=== PATIENT | female | born 1995 | race Caucasian/White ===

== ENCOUNTER → 2024-09-15 15:00 | Outpatient (CLI) | payer OTHER, SELFPAY | PROVIDERS: PCP Family Medicine; Visit Provider Family Medicine | DX: B37.9 Candidiasis, unspecified (principal) | CPT/HCPCS: 87210 ==

== ENCOUNTER → 2024-12-27 11:20 | Outpatient (CLI) | payer OTHER, SELFPAY | PROVIDERS: PCP Family Medicine; Visit Provider Family Medicine | DX: B37.31 Acute candidiasis of vulva and vagina (principal) | CPT/HCPCS: 87210; 87220 ==

== ENCOUNTER → 2025-01-05 15:21 | Outpatient (CLI) | payer OTHER, SELFPAY ==
[2025-01-05 16:25] LABS: Add Manual Diff / Slide Review NO; Basophils Absolute Auto 0 /uL (0-100); Basophils Percent Auto 0.3 % (0-2); Eosinophils Absolute Auto 100 /uL (0-450); Eosinophils Percent Auto 2.6 % (2-4); Hemoglobin 12.6 g/dL (12.0-16.0); Lymphocytes Absolute Auto 1500 /uL (1100-4500); Lymphocytes Percent Auto 31.1 % (25-40); Mean Corpuscular HGB Conc 34.1 % (30-36); Mean Corpuscular Hemoglobin 30.6 PG (26-34); Mean Corpuscular Volume 89.6 fL (80-100); Monocytes Absolute Auto 500 /uL (0-900); Monocytes Percent Auto 10.8 % (3-14); Neutrophils Absolute Auto 2700 /uL (1500-7000); Neutrophils Percent Auto 55.2 % (50-75); Platelet Count 260 X10^3/uL (150-400); Red Blood Cell Count 4.13 X10^6/uL (4.0-5.2); Red Cell Distribution Width 12.6 % (11.6-14.8); White Blood Cell Count 4.9 X10^3/uL (4.5-11.0)
[2025-01-05 16:41] LABS: Hemoglobin A1C% w Est Avg Glu 4.9 % (4.0-6.0)
[2025-01-05 16:44] LABS: Alanine Aminotransferase 14 IU/L (<35); Albumin 4.7 g/dL (3.5-5.0); Albumin Globulin Ratio 1.6 (1.0-2.8); Alkaline Phosphatase 56 U/L (38-126); Aspartate Aminotransferase 25 IU/L (14-36); BUN Creatinine Ratio 20.3 (6-22); Bilirubin Total 0.4 mg/dL (0.2-1.3); Blood Urea Nitrogen 13 mg/dL (7-17); Calcium 9.1 mg/dL (8.4-10.2); Carbon Dioxide 24 mmol/L (22-32); Chloride 103 mmol/L (98-107); Estimated Glomerular Filt Rate > 60 mL/min (>60); Glucose 96 mg/dL (70-99); HEMOLYSIS < 15 (0-50); Potassium 4.2 mmol/L (3.4-5.1); Sodium 137 mmol/L (137-145); Total Protein 7.7 g/dL (6.3-8.2)
[2025-01-05 17:00] LABS: Follicle Stimulating Hormone < 0.66 mIU/mL; Free T4, Direct Thyroxine 0.94 ng/dL (0.78-2.19); Luteinizing Hormone 0.243 mIU/mL
[2025-01-05 17:14] LABS: Thyroid Stimulating Hormone 1.78 uIU/mL (0.47-4.68)
[2025-01-07 05:13] LABS: Sex Hormone Binding Globulin 75.8 nmol/L (24.6-122.0)
[2025-01-13 09:09] LABS: Testosterone % Fr + Wkly bound 15.5 % (3.0-18.0); Testosterone Fr+Wkly bound 6.1 ng/dL (0.0-9.5); Testosterone, Total 39.2 ng/dL (10.0-55.0)
[2025-02-02 19:26] LABS: Urine N gonorrhoeae NOT DETECTED
[2025-02-02 19:28] LABS: Urine Chlamydia NOT DETECTED
== END ==
PROVIDERS: PCP Family Medicine; Referring Provider Obstetrics & Gynecology; Visit Provider Obstetrics & Gynecology
DX: B37.31 Acute candidiasis of vulva and vagina (principal); N93.9 Abnormal uterine and vaginal bleeding, unspecified
CPT/HCPCS: 36415; 80053; 82627; 83001; 83002; 83036; 83498; 84146; 84270; 84403; 84439; 84443; 85025; 87086; 87491; 87563; 87591; 87798

== ENCOUNTER → 2025-02-16 09:30 | Outpatient (CLI) | payer OTHER, SELFPAY ==
[2025-02-16 10:23] LABS: Add Manual Diff / Slide Review NO; Hematocrit 35.1 % (36-46); Hemoglobin 12.1 g/dL (12.0-16.0); Lymphocytes Absolute Auto 1700 /uL (1100-4500); Mean Corpuscular HGB Conc 34.5 % (30-36); Mean Corpuscular Hemoglobin 30.9 PG (26-34); Mean Corpuscular Volume 89.7 fL (80-100); Platelet Count 299 X10^3/uL (150-400)
[2025-02-16 10:48] LABS: Natera Collection Specimen Collected
[2025-02-16 11:11] LABS: Hepatitis B Surface Antigen NEGATIVE s/c (NEGATIVE)
[2025-02-16 11:18] LABS: HCG Quantitative /Beta subunit 130630 mIU/mL
[2025-02-16 11:30] LABS: HIV 1 & 2 Ab/Ag 4th Gen Combo NEGATIVE (NEGATIVE); Hep C Virus Ab w/Reflex Quant NEGATIVE s/c (NEGATIVE)
== END ==
LOC: LAB 09:31
PROVIDERS: PCP Family Medicine; Referring Provider Obstetrics & Gynecology; Visit Provider Obstetrics & Gynecology
DX: Z34.02 Encounter for supervision of normal first pregnancy, second trimester (principal); Z36.0 Encounter for antenatal screening for chromosomal anomalies
CPT/HCPCS: 36415; 80055; 84702; 86787; 86803; 86850; 86900; 86901; 87389

== ENCOUNTER → 2025-03-02 11:07 | Outpatient (CLI) | payer OTHER, SELFPAY ==
[2025-03-03 14:36] LABS: Trichomoas vaginalis Negative (Negative)
== END ==
PROVIDERS: PCP Family Medicine; Visit Provider Student in an Organized Health Care Education/Training Program
DX: N89.8 Other specified noninflammatory disorders of vagina (principal)
CPT/HCPCS: 87480; 87510; 87660

== ENCOUNTER → 2025-05-03 13:44 | Outpatient (CLI) | payer OTHER, SELFPAY ==
--- NOTE | 2025-05-03 13:45 | DI.US.S_ITS ---
PROCEDURE: US OB >= 14 WEEKS FETUS INDICATIONS: 20 week anatomy scan OUTSIDE/PRIOR DATING DATA: Working (BREEZY): 09/10/25. TECHNIQUE: Real-time scanning was performed of the fetus, with image documentation and biometric measurements. COMPARISON: [facility], US, US OB <= 14 WEEKS FETUS, 03/02/2025, 11:08. FINDINGS: General: A single living intrauterine gestation is present. Presentation: Vertex Placenta: Placental position is posterior , without previa. Amniotic fluid index: 14 point cm, normal range is 5-24 cm. Single deepest vertical pocket is 4.5 cm. heart rate: 140 beats per minute. Maternal cervical canal: 3 cm long. Normal lower limit is 2.5 cm. biometrics: Biparietal diameter: 5.2 cm 21 weeks 5 days Head circumference: 19.8 cm 21 weeks 5 days Abdominal circumference: 16.8 cm 21 weeks 5 days Femur length: 3.3 cm 20 weeks 3 days Clinically estimated gestational age: 21 weeks 2 days Composite gestational age from present scan: 21 weeks 3 days Estimated weight and percentile: 410 g 42nd percentile Anatomic survey: Neuro: Ventricles are non-dilated at less than 10 mm. Cisterna magna is normal at 3-11 mm. Cerebellum is normal in size and morphology. Nuchal skin fold: Normal at less than 6 mm between 14-21 weeks gestational age. Face: Nose and lips, facial profile are normal. Spine: No evidence for spina bifida. Heart: 4-chambered heart and ventricular outflow tracts are not well seen. Diaphragm: Diaphragm is intact. Stomach: Left-sided stomach is present. Kidneys: No hydronephrosis. Normal is less than 5 mm in 2nd trimester, less than 7 mm in 3rd trimester. Cord: 3-vessel cord has orthotopic insertion. Bladder: Normal in size. Extremities: All 4 extremities identified. IMPRESSION: Single live intrauterine with gestational age today of 21 weeks 3 days. 4 chambered heart and outflow tracts are suboptimally visualized. Recommend follow-up imaging for further evaluation. We strive to produce accurate, complete, and clear reports of imaging services. To assist us in improving patient care, this report was composed using standard report templates and voice recognition software. Therefore, it may contain abnormal punctuation, insertions and/or omissions. Occasional wrong-word or sound-alike substitutions may occur. Though we review the report and make efforts to correct it, we do recommend that the report be read carefully in proper context to recognize any text inaccuracies. Dictated by: Michaela Craig M.D. on 05/04/2025 at 15:01 Approved by: Michaela Craig M.D. on 05/04/2025 at 15:06
== END ==
LOC: US 13:44
PROVIDERS: PCP Family Medicine; Referring Provider Obstetrics & Gynecology; Visit Provider Obstetrics & Gynecology
DX: Z34.02 Encounter for supervision of normal first pregnancy, second trimester (principal); Z3A.21 21 weeks gestation of pregnancy
CPT/HCPCS: 76811

== ENCOUNTER → 2025-05-25 10:56 | Outpatient (CLI) | payer OTHER, SELFPAY ==
--- NOTE | 2025-05-25 10:59 | EKG_ITS ---
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
== END ==
LOC: RESP 10:58
PROVIDERS: PCP Family Medicine; Referring Provider Obstetrics & Gynecology; Visit Provider Obstetrics & Gynecology
DX: R00.2 Palpitations (principal)
CPT/HCPCS: 93005

== ENCOUNTER → 2025-05-26 10:18 | Outpatient (CLI) | payer OTHER, SELFPAY ==
[2025-05-26 11:15] LABS: Hematocrit 29.0 % (36-46); Hemoglobin 10.1 g/dL (12.0-16.0)
[2025-05-26 12:33] LABS: GTT (PREG) 1 Hour PP 50gm Dose 85 mg/dL (76-139)
== END ==
PROVIDERS: PCP Family Medicine; Referring Provider Obstetrics & Gynecology; Visit Provider Obstetrics & Gynecology
DX: Z34.02 Encounter for supervision of normal first pregnancy, second trimester (principal)
CPT/HCPCS: 36415; 82950; 85014; 85018; 86850

== ENCOUNTER → 2025-06-12 14:57 | Outpatient (CLI) | payer OTHER, SELFPAY ==
--- NOTE | 2025-06-12 14:57 | DI.ECHO.S_ITS ---
[facility] : : [address] : [place] : : [id number] : : Phone: [phone] Echocardiogram Report + + :Name: MERISSA SIMS Study Date: 06/12/2025 Height: 63 in : :[facility] ReadingLocation: Weight: 115 lb : : Gender: Female BSA: 1.5 m2 : :: 1995 Age: 29 yrs BP: 103/71 mmHg: :Reason For Study: PALPITATIONS, : :Ordering Physician: ROSALES, : :RENETTA Gutierrez Performed By: Tylor Rubin : :Referring: RENETTA CABA : + + Interpretation Summary The ejection fraction is estimated to be 55-60%. Mitral valves are minimally thickened and mildly reduced excursion. This can sometimes be seen in patients with history of rheumatic heart disease. It might be worthwhile exploring this with the patient. There does not appear to be any significant mitral stenosis. There is trace tricuspid regurgitation. Procedure: A two-dimensional transthoracic echocardiogram with color flow and Doppler was performed. The study quality was technically good. There is no prior echocardiogram noted for this patient. The patient was in normal sinus rhythm during the exam. Left Ventricle: The left ventricle is normal in size. There is normal left ventricular wall thickness. There is no ventricular septal defect visualized. The ejection fraction is estimated to be 55-60%. There are no focal wall motion abnormalities. Normal diastolic function. Right Ventricle: The right ventricle is normal in size and function. Atria: The left atrial size is normal. Right atrial size is normal. There is no Doppler evidence for an interatrial shunt. Mitral Valve: Mitral valves are minimally thickened and mildly reduced excursion. This can sometimes be seen in patients with history of rheumatic heart disease. It might be worthwhile exploring this with the patient. There does not appear to be any significant mitral stenosis. There is no mitral regurgitation noted. Aortic Valve: The aortic valve is trileaflet. The aortic valve opens well. No aortic regurgitation is present. Tricuspid Valve: The tricuspid valve leaflets are thin and pliable. There is trace tricuspid regurgitation. Pulmonic Valve: The pulmonic valve leaflets are thin and pliable; valve motion is normal. There is trace pulmonic regurgitation. Great Vessels: The aortic root is normal size. The dimensions of the ascending aorta are normal. The pulmonary artery is normal size. The IVC is of normal diameter and collapses greater than 50% with a sniff. This suggests a low right atrial pressure of 3 mm Hg. Pericardium/ Pleura There is no pericardial effusion. There is no pleural effusion. MMode/2D Measurements & Calculations LVIDd: 4.8 cm LVOT diam: 1.8 cm LVIDs: 3.3 cm Ao root diam: 2.8 cm FS: 30.5 % asc Aorta Diam: 2.8 cm EPSS: 0.68 cm Ao Arch Diam (Prox Trans): 1.1 cm IVSd: 0.54 cm LVPWd: 0.75 cm LV guadarrama. diameter/BSA (cm/m^2): 3.1 LV sys. diameter/BSA (cm/m^2): 2.2 LA A2 area: 12.9 cm2 RA long axis: 3.6 cm LA A4 area: 11.8 cm2 RA area: 8.0 cm2 LA length (vol): 4.0 cm RA vol: 15.2 ml LA vol: 32.3 ml RA : 10.0 ml/m2 LA vol index: 21.1 ml/m2 IVC diam: 0.98 cm RVD1 (basal): 2.8 cm RVD2 (mid): 2.1 cm TAPSE: 2.1 cm Doppler Measurements & Calculations Ao V2 max: 106.1 cm/sec LVOT Max Jereime: 96.9 cm/sec Ao V2 mean: 67.9 cm/sec LV V1 max P.8 mmHg Ao max P.5 mmHg LV V1 VTI: 16.0 cm Ao mean P.1 mmHg ADAMS(I,D): 2.6 cm2 Ao V2 VTI: 15.8 cm ADAMS(V,D): 2.3 cm2 sev ratio: 1.0 ADAMS indexed to BSA (cm^2/m^2): 1.7 MV E max jeremie: 57.6 cm/sec PA V2 max: 114.3 cm/sec MV A max jeremie: 38.2 cm/sec PA V2 mean: 81.7 cm/sec MV E/A: 1.5 PA mean P.9 mmHg Med Peak E' Jeremie: 8.0 cm/sec PA pr(Accel): 25.9 mmHg E/E' med: 7.2 Lat Peak E' Jeremie: 13.1 cm/sec E/E' lat: 4.4 E/e' average: 5.8 MV dec time: 0.20 sec SV(LVOT): 40.8 ml Reading Physician:11:56 AM
== END ==
LOC: ECHO 14:57
PROVIDERS: PCP Family Medicine; Referring Provider Obstetrics & Gynecology; Visit Provider Obstetrics & Gynecology
DX: R00.2 Palpitations (principal)
CPT/HCPCS: 93306

== ENCOUNTER 2025-06-22 09:37 | Emergency (ER) | payer OTHER, SELFPAY ==
[2025-06-22 09:54] VITALS: BP 101/60; PULSE 90; RESP 18; TEMP 36.9; O2SAT 99; BMI 20.7
--- NOTE | 2025-06-22 09:59 | EKG_ITS ---
[place] [id number] [place] [address] Test Date: 2025-06-22 Pat Name: Lanette Schneider Department: Room: Gender: Female Cable Operator: GILES : 1995 Requested By: Order Number: [id number] Reading MD: Preet Silver MD Measurements Intervals Gail Rate: 91 P: 79 NH: 124 QRS: 78 QRSD: 80 T: 14 QT: 322 QTc: 396 Interpretive Statements Normal sinus rhythm Nonspecific ST and T wave abnormality Electronically Signed On 06-22-2025 11:49:43 PST by Preet Silver MD
--- NOTE | 2025-06-22 10:00 | ED.ARRPALP ---
HPI - Arrhythmia/Palpitations General Chief Complaint: Arrhythmia/Palpitations Stated Complaint: Heart palpatations; SOB worseing Time Seen by Provider: 06/22/25 09:59 Source: patient Mode of arrival: Ambulatory History of Present Illness HPI narrative: patient is sent here by her OBGYN Dr Weldon for palpitations shortness of breath. Patient is . Patient at 28 weeks . Denies abdominal pain pelvic pain vaginal bleeding or discharge. Patient just had OBGYN office visit 2 days ago. Patient has known history of iron deficiency anemia. Has been recommended to have iron transfusion but due to late insurance authorization, could not get it done. No prior history of transfusions. Patient does have history of asthma. Last H&H was 10 and 29 on May 26, 2025. patient has had daily palpitations for the past 4 weeks. They usually last 1 hour at a time. Related Data Home Medications ?Medication ?Instructions ?Recorded ?Confirmed tretinoin 0.025 % topical cream 1 applic topical 2XW PRN Acne 09/04/24 06/19/25 vitamin-ferrous sulfate tab PO 01/17/25 06/19/25 27 mg iron-folic acid 0.8 mg tablet Previous Rx's ?Medication ?Instructions ?Recorded fluticasone propionate 44 1 inh inhalation BID Asthma #10.6 09/04/24 mcg/actuation HFA aerosol inhaler grams lactic acid 1.8 %-citric ac 1 1 appful vaginal PER PKG DIR #60 09/15/24 %-potassium bitartate 0.4 % grams vaginal gel (Phexxi) sumatriptan succinate 50 mg tablet See Rx Instructions PO .COMPLEX 12/19/24 #12 tabs albuterol sulfate 90 mcg/actuation 2 puff inhalation Q6H PRN 02/02/25 aerosol inhaler shortness of breath or wheezing #6.7 grams doxylamine 10 mg-pyridoxine (vit 1 tab PO DAILY #30 tabs 02/02/25 B6) 10 mg tablet,delayed release (Diclegis) promethazine 12.5 mg tablet 12.5 mg PO TID #30 tabs 02/02/25 Allergies Allergy/AdvReac Type Severity Reaction Status Date / Time house dust mite Allergy Severe Difficulty Verified 06/19/25 11:18 Breathing Review of Systems Review of Systems Narrative: GENERAL: Negative chills, fatigue, malaise, fever, sweats. HEENT: Negative sinus pain, ear pain, sore throat RESPIRATORY: Positivedyspnea, negativecough CARDIOVASCULAR: positivechest pain, palpitations GASTROINTESTINAL: Negative vomiting, nausea, abdominal pain : Negative dysuria, frequency, hematuria MUSCULOSKELETAL: Negative muscle or bony pain SKIN: Negative rash, skin lesions NEUROLOGIC: Negative weakness, numbness ROS Unobtainable: All systems reviewed & are unremarkable except as noted in HPI and below Patient History Medical History (Updated 06/22/25 @ 12:35 by Earl Souza MD) Shingles Genital warts (~2013) Surgical History (Updated 12/19/24 @ 07:49 by Jeanne Canales MA) [place] teeth removed Family History (Updated 01/17/25 @ 13:41 by Valeri Evans RN) Father Age: 65 Hypercholesterolemia Hypertension Uncle Diabetes mellitus Heart attack Hypertension Stroke Mother Osteoporosis Grandfather Stroke Grandmother Dementia Grandfather Heart attack Grandmother Recurrent pneumonia Social History marital status: number of children: 0 household members: spouse lives independently: Yes caregiver/support person: No housing: house pets and animals: Yes (cats, aware of litter box precautions) education level: other (medical doctorate) 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[employer]) current occupational exposures/hazards: No special azar needs: No travel history: recent (domestic only) seatbelt use: always helmet use: Yes water heater temp set < 120 deg: Yes working smoke detector in home: Yes fire extinguisher in home: Yes carbon monox detector in home: Yes firearms in home: Yes firearms unloaded and locked: Yes do you feel safe at home: Yes Smoking Status: Never smoker Tobacco: How many years used: 5 (off and on) Smokeless tobacco user: snus second hand exposure: No alcohol intake: former (rarely when not ) substance use type: does not use during the past year weight has: remained stable well-balanced diet: daily or most days daily servings fruits/ve or more times/day caffeine: Yes (aware of 200mg limit) Type(s) of exercise: walking and bicycling additional social history: 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 Pt laughingly wonders why neither she or her was ever taught more about OB care in their training. Smoking Status: Never smoker Exam Narrative Exam Narrative: GENERAL: in no distress, not toxic not dyspneic HEAD: Normocephalic. EYES: Pupils equal round ENT: Mucous membranes moist. NECK: Trachea midline. CARDIOVASCULAR: Regular rate and rhythm RESPIRATORY: Clear to auscultation. Breath sounds equal bilaterally. No wheezes, rales, or rhonchi. GASTROINTESTINAL: Abdomen soft, non-tender /Gravid abdomen. BACK: No flank tenderness. EXTREMITIES: No gross deformities. NEURO: AOx4. Clear speech SKIN: Warm and dry PSYCH: Not anxious, is cooperative Initial Vital Signs Initial Vital Signs: Vital Signs Temperature 98.4 F 06/22/25 09:54 Pulse Rate 90 06/22/25 09:54 Respiratory Rate 18 06/22/25 09:54 Blood Pressure 101/60 06/22/25 09:54 Pulse Oximetry 99 06/22/25 09:54 Oxygen Delivery Method Room Air, Heated High Flow 06/22/25 09:54 Scores HEART Score Heart Score history: Slightly Suspicious Heart Score EKG: Normal Heart Score Age: < 45 years old Heart Score risk factors: No known risk factors Heart Score troponin: < or = to normal limit Heart Score Total: 0 Course Orders Ordered: ED Orders 06/22/25 10:05 Iron Profile (w/ % Saturation) Stat 06/22/25 10:22 Complete Blood Count AUTO DIFF Stat Comprehensive Metabolic Panel Stat Troponin & CK Cardiac Panel Stat 06/22/25 10:31 EKG-12 Lead Stat 06/22/25 11:10 PTT Partial Thromboplastin Germán Stat Prothrombin Time INR Stat TSH [Thyroid Stimulating Hormone] Stat Vital Signs Vital signs: Vital Signs - 8 hr 06/22/25 09:54 06/22/25 12:27 06/22/25 12:41 Temperature 98.4 F Pulse Rate 90 75 83 Respiratory Rate 18 16 16 Blood Pressure 101/60 96/53 L 107/63 Pulse Oximetry 99 100 100 Oxygen Delivery Method Room Air Heated High Flow Room Air Room Air MDM - Arrhythmia/Palpitations Medical Records Medical records narrative: [address] [address] Echocardiography Report Signed Patient: Lanette Schneider MR#: [id number] : 1995 Acct:[id number] Age/Sex: 29 / F Date of Service: 06/12/25 Loc: ECHO Accession Number: [id number] Procedure: EC echo doppler complete Ordering Provider: Gerard Auguste MD +---------+ Hospital : : [address] [place] [address]. : : [place] : : [address] : : Phone: [phone] Echocardiogram Report + + :Name: LANETTE SCHNEIDER Study Date: 06/12/2025 Height: 63 in : :[facility] ReadingLocation: Weight: 115 lb : : Gender: Female BSA: 1.5 m2 : :: 1995 Age: 29 yrs BP: 103/71 mmHg: :Reason For Study: PALPITATIONS, : :Ordering Physician: ROSALES, : :GERARD Gutierrez Performed By: Tylor Rubin : :Referring: GERARD AUGUSTE : + + Interpretation Summary The ejection fraction is estimated to be 55-60%. Mitral valves are minimally thickened and mildly reduced excursion. This can sometimes be seen in patients with history of rheumatic heart disease. It might be worthwhile exploring this with the patient. There does not appear to be any significant mitral stenosis. There is trace tricuspid regurgitation. Procedure: A two-dimensional transthoracic echocardiogram with color flow and Doppler was performed. The study quality was technically good. There is no prior echocardiogram noted for this patient. The patient was in normal sinus rhythm during the exam. Left Ventricle: The left ventricle is normal in size. There is normal left ventricular wall thickness. There is no ventricular septal defect visualized. The ejection fraction is estimated to be 55-60%. There are no focal wall motion abnormalities. Normal diastolic function. Right Ventricle: The right ventricle is normal in size and function. Atria: The left atrial size is normal. Right atrial size is normal. There is no Doppler evidence for an interatrial shunt. Mitral Valve: Mitral valves are minimally thickened and mildly reduced excursion. This can sometimes be seen in patients with history of rheumatic heart disease. It might be worthwhile exploring this with the patient. There does not appear to be any significant mitral stenosis. There is no mitral regurgitation noted. Aortic Valve: The aortic valve is trileaflet. The aortic valve opens well. No aortic regurgitation is present. Tricuspid Valve: The tricuspid valve leaflets are thin and pliable. There is trace tricuspid regurgitation. Pulmonic Valve: The pulmonic valve leaflets are thin and pliable; valve motion is normal. There is trace pulmonic regurgitation. Great Vessels: The aortic root is normal size. The dimensions of the ascending aorta are normal. The pulmonary artery is normal size. The IVC is of normal diameter and collapses greater than 50% with a sniff. This suggests a low right atrial pressure of 3 mm Hg. Pericardium/ Pleura There is no pericardial effusion. There is no pleural effusion. MMode/2D Measurements & Calculations LVIDd: 4.8 cm LVOT diam: 1.8 cm LVIDs: 3.3 cm Ao root diam: 2.8 cm FS: 30.5 % asc Aorta Diam: 2.8 cm EPSS: 0.68 cm Ao Arch Diam (Prox Trans): 1.1 cm IVSd: 0.54 cm LVPWd: 0.75 cm LV guadarrama. diameter/BSA (cm/m^2): 3.1 LV sys. diameter/BSA (cm/m^2): 2.2 LA A2 area: 12.9 cm2 RA long axis: 3.6 cm LA A4 area: 11.8 cm2 RA area: 8.0 cm2 LA length (vol): 4.0 cm RA vol: 15.2 ml LA vol: 32.3 ml RA : 10.0 ml/m2 LA vol index: 21.1 ml/m2 IVC diam: 0.98 cm RVD1 (basal): 2.8 cm RVD2 (mid): 2.1 cm TAPSE: 2.1 cm Doppler Measurements & Calculations Ao V2 max: 106.1 cm/sec LVOT Max Joshua: 96.9 cm/sec Ao V2 mean: 67.9 cm/sec LV V1 max P.8 mmHg Ao max P.5 mmHg LV V1 VTI: 16.0 cm Ao mean P.1 mmHg ADAMS(I,D): 2.6 cm2 Ao V2 VTI: 15.8 cm ADAMS(V,D): 2.3 cm2 sev ratio: 1.0 ADAMS indexed to BSA (cm^2/m^2): 1.7 MV E max joshua: 57.6 cm/sec PA V2 max: 114.3 cm/sec MV A max joshua: 38.2 cm/sec PA V2 mean: 81.7 cm/sec MV E/A: 1.5 PA mean P.9 mmHg Med Peak E' Joshua: 8.0 cm/sec PA pr(Accel): 25.9 mmHg E/E' med: 7.2 Lat Peak E' Joshua: 13.1 cm/sec E/E' lat: 4.4 E/e' average: 5.8 MV dec time: 0.20 sec SV(LVOT): 40.8 ml Reading Physician:11:56 AM Lab Data 06/22/25 10:22 06/22/25 10:22 Labs: Lab Results 06/22/25 06/22/25 06/22/25 Range/Units 10:05 10:22 11:10 WBC 6.8 (4.5-11.0) X10^3/uL RBC 3.38 L (4.0-5.2) X10^6/uL Hgb 10.4 L (12.0-16.0) g/dL Hct 30.0 L (36-46) % MCV 88.8 (80-100) fL MCH 30.7 (26-34) PG MCHC 34.6 (30-36) % RDW 13.0 (11.6-14.8) % Plt Count 260 (150-400) X10^3/uL Neut % (Auto) 73.6 (50-75) % Lymph % (Auto) 18.2 L (25-40) % Cooper % (Auto) 7.1 (3-14) % Eos % (Auto) 1.0 L (2-4) % Baso % (Auto) 0.1 (0-2) % Neut # (Auto) 5000 (7369-9644) /uL Lymph # (Auto) 1200 (9199-6533) /uL Cooper # (Auto) 500 (0-900) /uL Eos # (Auto) 100 (0-450) /uL Baso # (Auto) 0 (0-100) /uL PT 10.2 (9.4-12.5) SECONDS INR 0.9 (0.9-1.3) APTT 24 L (25.1-36.5) SECONDS Sodium 136 L (137-145) mmol/L Potassium 3.9 (3.4-5.1) mmol/L Chloride 108 H (98-107) mmol/L Carbon Dioxide 22 (22-32) mmol/L BUN 9 (7-17) mg/dL Creatinine 0.53 (0.52-1.04) mg/dL Estimated GFR > 60 (>60) mL/min BUN/Creatinine Ratio 17.0 (6-22) Glucose 89 (70-99) mg/dL Calcium 9.2 (8.4-10.2) mg/dL Iron 65 (37-170) ug/dL TIBC 490 (265-497) ug/dL % Saturation 13 L (15-50) % Transferrin 428 H (206-381) mg/dL Total Bilirubin 0.2 (0.2-1.3) mg/dL AST 22 (14-36) IU/L ALT 12 (<35) IU/L Alkaline Phosphatase 73 (38-126) U/L Total Creatine Kinase 21 L (30-135) U/L Troponin I < 0.012 (0.01-0.034) ng/mL Total Protein 6.5 (6.3-8.2) g/dL Albumin 3.7 (3.5-5.0) g/dL Globulin 2.8 (1.7-4.1) g/dL Albumin/Globulin Ratio 1.3 (1.0-2.8) TSH 0.955 (0.47-4.68) uIU/mL MDM Narrative Medical decision making narrative: patient is sent here by her OBGYN Dr Weldon for palpitations shortness of breath. Patient is . Patient at 28 weeks . Denies abdominal pain pelvic pain vaginal bleeding or discharge. Patient just had OBGYN office visit 2 days ago. Patient has known history of iron deficiency anemia. Has been recommended to have iron transfusion but due to late insurance authorization, could not get it done. No prior history of transfusions. Patient does have history of asthma. Last H&H was 10 and 29 on May 26, 2025. Patient has had daily palpitations for the past 4 weeks. They usually last 1 hour at a time. MDM After history and exam, CBC CMP iron panel, type and screen, PT INR PTT, EKG , no D-dimer at this time. Heart rate 90. No tachycardia. Nine 9% room air. Differential considered: Includes but not limited to Medical records reviewed: June 19, 2025 OBGYN office visit notes, echocardiogram June 12, 2025 reviewed. Is reassuring Lab Test results independently reviewed as above. Pertinent findings: WBC 6.8 hemoglobin 10.4 hematocrit 30 platelets 260 sodium 136 potassium 3.9 chloride 108 BUN 9 creatinine 0.33 GFR greater than 60 glucose 89 calcium 9.2 iron 65 TIBC 490 transferrin 428 troponin less than 0.012 , TSH 0.955 Independently reviewed EKG normal sinus rhythm rate [address]-elevation or depression Imaging studies independently reviewed: Not indicated Consultations: 12:21 p.m.. I spoke with patient's OBGYN provider. Dr. Weldon, laboratory studies exam and vital signs are reassuring. No admission or transfer indicated at this time. She will scheduled for iron infusion for patient on Wednesday. Does not want D-dimer at this time as clinically not appropriate. She will ordered a Zio patch Re-evaluations: 12:23 p.m.. Updated patient and results and my discussion with her OBGYN provider. They will schedule for iron infusion on Wednesday. Laboratory studies EKG are reassuring at this time. I did review with them it would be a good idea to get a Zio patch given her symptoms daily for the past 4 weeks. Discussion: appropriate for discharge home. Exam and laboratory studies EKG are reassuring. I did review with the patient's OBGYN provider and they will follow up with patient on Wednesday for iron infusion. Diagnosis: anemia Discharge Plan Departure Patient Disposition: Home Clinical Impression: Palpitations Instructions: DI for Arrhythmias Activity Restrictions/Additional Instructions: your exam and laboratory studies are reassuring. Your OBGYN provider was contacted. They will schedule iron infusion for you for next Wednesday. In addition they will order Zio patch for you. Return if worse if any questions or concerns. Continue home medications. Prescriptions: No Action Phexxi 1.8-1-0.4 % gel 1 appful vaginal PER PKG DIR Qty: 60 0RF Rx Instructions: insert 1 applicatorful vaginally within 1 hour before each act of vaginal intercourse vit-ferrous sulfat-FA 27 mg iron- 0.8 mg tablet PO tretinoin 0.025 % cream 1 applic topical 2XW PRN (Reason: Acne) fluticasone propionate 44 mcg/actuation HFA aerosol inhaler 1 inh inhalation BID Qty: 10.6 0RF sumatriptan succinate 50 mg tablet See Rx Instructions PO .COMPLEX Qty: 12 6RF Rx Instructions: take 1 tab at onset of headache; if no relief may repeat 1 tab after at least 2 hrs; max = 4 tabs/24 hr PO promethazine 12.5 mg tablet 12.5 mg PO TID Qty: 30 3RF doxylamine-pyridoxine (vit B6) [Diclegis] 10-10 mg tablet,delayed release (DR/EC) 1 tab PO DAILY Qty: 30 3RF albuterol sulfate 90 mcg/actuation HFA aerosol inhaler 2 puff inhalation Q6H PRN (Reason: shortness of breath or wheezing) Qty: 6.7 2RF Referrals: Vidya Rai DO [Primary Care Provider, Family Practice] Stand Alone Forms: Patient Portal/API
[2025-06-22 10:52] LABS: Add Manual Diff / Slide Review NO; Creatine Kinase 21 U/L (30-135); Hematocrit 30.0 % (36-46); Hemoglobin 10.4 g/dL (12.0-16.0); Lymphocytes Absolute Auto 1200 /uL (1100-4500); Mean Corpuscular HGB Conc 34.6 % (30-36); Mean Corpuscular Hemoglobin 30.7 PG (26-34); Mean Corpuscular Volume 88.8 fL (80-100); Platelet Count 260 X10^3/uL (150-400)
[2025-06-22 10:53] LABS: HEMOLYSIS < 15 (0-50); Iron 65 ug/dL (37-170)
[2025-06-22 11:00] LABS: Alanine Aminotransferase 12 IU/L (<35); Albumin 3.7 g/dL (3.5-5.0); Albumin Globulin Ratio 1.3 (1.0-2.8); Alkaline Phosphatase 73 U/L (38-126); Blood Urea Nitrogen 9 mg/dL (7-17); Calcium 9.2 mg/dL (8.4-10.2); Carbon Dioxide 22 mmol/L (22-32); Chloride 108 mmol/L (98-107); Estimated Glomerular Filt Rate > 60 mL/min (>60); Globulin 2.8 g/dL (1.7-4.1); Glucose 89 mg/dL (70-99); HEMOLYSIS < 15 (0-50); Potassium 3.9 mmol/L (3.4-5.1); Sodium 136 mmol/L (137-145); Total Protein 6.5 g/dL (6.3-8.2)
[2025-06-22 11:04] LABS: Percent Iron Saturation 13 % (15-50); Total Iron Binding Capacity 490 ug/dL (265-497); Transferrin 428 mg/dL (206-381)
[2025-06-22 11:05] LABS: Troponin I < 0.012 ng/mL (0.01-0.034)
[2025-06-22 11:28] LABS: INR 0.9 (0.9-1.3); Prothrombin Time 10.2 SECONDS (9.4-12.5)
[2025-06-22 11:29] LABS: PTT Partial Thromboplastin Tim 24 SECONDS (25.1-36.5)
[2025-06-22 12:18] LABS: Thyroid Stimulating Hormone 0.955 uIU/mL (0.47-4.68)
[2025-06-22 12:27] VITALS: BP 96/53; PULSE 75; RESP 16; O2SAT 100
[2025-06-22 12:41] VITALS: BP 107/63; PULSE 83; RESP 16; O2SAT 100
== END 2025-06-22 12:41 | disposition home or self-care (01) ==
PROVIDERS: Emergency Provider Emergency Medicine; PCP Family Medicine
DX: O26.893 Other specified pregnancy related conditions, third trimester (principal); R00.2 Palpitations; R06.02 Shortness of breath; Z3A.28 28 weeks gestation of pregnancy
CPT/HCPCS: 36415; 80053; 82550; 83540; 83550; 84443; 84484; 85025; 85610; 85730; 93005; 99284

== ENCOUNTER → 2025-07-02 15:08 | Outpatient (CLI) | payer OTHER, SELFPAY | LOC: CAR 15:09 | PROVIDERS: PCP Family Medicine; Referring Provider Obstetrics & Gynecology; Visit Provider Obstetrics & Gynecology | DX: Z34.90 Encounter for supervision of normal pregnancy, unspecified, unspecified trimester (principal) | CPT/HCPCS: 93242 ==

== ENCOUNTER 2025-07-04 12:22 | Observation (INO) | payer OTHER, SELFPAY | END 2025-07-04 14:35 | disposition home or self-care (01) | PROVIDERS: Admitting Provider Obstetrics & Gynecology; PCP Family Medicine; Referring Provider Obstetrics & Gynecology; Visit Provider Obstetrics & Gynecology | DX: O99.013 Anemia complicating pregnancy, third trimester (principal); Z3A.30 30 weeks gestation of pregnancy | CPT/HCPCS: 59025; 59050; 96360; G0378; G0379 ==

== ENCOUNTER → 2025-07-06 10:45 | Outpatient (CLI) | payer OTHER, SELFPAY ==
--- NOTE | 2025-07-06 10:46 | DI.US.S_ITS ---
PROCEDURE: US OB FOLLOW UP INDICATIONS: RE-EVAL HEART OUTSIDE/PRIOR DATING DATA: Working BREEZY: 09/14/25 TECHNIQUE: Real-time scanning was performed of the fetus, with image documentation. Endovaginal scanning: Not performed COMPARISON: None. FINDINGS: A single living intrauterine gestation is present. Presentation: Vertex. Placenta: Placental position is posterior, without previa. Amniotic fluid index: 16 cm, normal range is 5-24 cm. Single deepest vertical pocket is 4.9 cm. heart rate: 144 beats per minute. Maternal cervical canal: 3 cm long. Normal lower limit is 2.5 cm. Clinically estimated gestational age: 30 weeks 0 days Four-chamber heart, outflow tracts appear normal. IMPRESSION: Single living intrauterine at 30 weeks 0 days, BREEZY of 09/14/2025. Normal cardiac structures on today's examination. Dictated by: Cesar Overton M.D. on 07/06/2025 at 13:21 Approved by: Cesar Overton M.D. on 07/06/2025 at 13:35
== END ==
LOC: US 10:46
PROVIDERS: PCP Family Medicine; Referring Provider Obstetrics & Gynecology; Visit Provider Obstetrics & Gynecology
DX: Z36.2 Encounter for other antenatal screening follow-up (principal); Z3A.30 30 weeks gestation of pregnancy
CPT/HCPCS: 76816

== ENCOUNTER 2025-07-26 11:51 | Outpatient (CLI) | payer OTHER, SELFPAY ==
--- NOTE | 2025-07-26 12:13 | PM.OBTRLD ---
Visit Information Visit Information Date of evaluation: 07/26/25 Primary OB Provider: Ce Weldon On-call OB Provider: Ce Weldon Reason for Evaluation: Yes other Comments/Additional reasons for admission: 29yo G1 at 33w2d presents to triage for further evaluation. Patient had called office with concerns of vaginal bulge noted at time of first AM void today. +FM, denies VB, LOF, dysuria, cramping/ctx. Last intimacy approx 48h ago. comfortable appearing on interview [facility] Medical History (Updated 07/17/25 @ 14:20 by Ce Weldon MD) Anemia in preg-unspec Shingles Genital warts (~2013) Surgical History (Updated 12/19/24 @ 07:49 by Jeanne Canales MA) [place] teeth removed Family History (Updated 01/17/25 @ 13:41 by Valeri Evans RN) Father Age: 65 Hypercholesterolemia Hypertension Uncle Diabetes mellitus Heart attack Hypertension Stroke Mother Osteoporosis Grandfather Stroke Grandmother Dementia Grandfather Heart attack Grandmother Recurrent pneumonia Social History marital status: number of children: 0 household members: spouse lives independently: Yes caregiver/support person: No housing: house pets and animals: Yes (cats, aware of litter box precautions) education level: other (medical doctorate) 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[employer]) current occupational exposures/hazards: No special azar needs: No travel history: recent (domestic only) seatbelt use: always helmet use: Yes water heater temp set < 120 deg: Yes working smoke detector in home: Yes fire extinguisher in home: Yes carbon monox detector in home: Yes firearms in home: Yes firearms unloaded and locked: Yes do you feel safe at home: Yes Tobacco: How many years used: 5 (off and on) Smokeless tobacco user: snus second hand exposure: No alcohol intake: former (rarely when not ) substance use type: does not use during the past year weight has: remained stable well-balanced diet: daily or most days daily servings fruits/ve or more times/day caffeine: Yes (aware of 200mg limit) Type(s) of exercise: walking and bicycling additional social history: 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 Pt laughingly wonders why neither she or her was ever taught more about OB care in their training. Review of Systems Review of Systems ROS: Yes All systems reviewed with the patient and are negative except as otherwise documented Exam Const General: cooperative, healthy appearing, comfortable and well developed Nutritional Appearance: average body habitus Orientation: alert, awake and oriented x3 Limitations: mental status not altered Resp Effort & Inspection: normal respiratory effort and able to speak in complete sentences Cardio Pulses: normal peripheral pulses GI Palpation: soft Other: soft, adilene cephalic BSUS, cephalic presentation, adequate STACY, no cervical thinning appreciated Other: external female genitalia wnl, prominent urethra/hymenal remnant due to engorgement of sterile speculum exam with visualized closed cervix, scant physiologic discharge cl/thk/hi on digital exam Skin General: no rashes or lesions noted Neuro General: patient alert, patient awake and patient oriented x3 Extrem General: normal to inspection Psych Mental Status: mental status grossly normal Judgment: judgment good Evaluation Evaluation Baseline heart rate: 140 Variability: Moderate (6-25) monitor accelerations: Present Monitor Decelerations: Absent Category of Tracing: Reactive Status: Category l Cervical dilation (cm): 0 Diagnosis, Plan/Disposition Plan/Disposition Plan: r/o PTL -- reassurance provided, normal physiologic changes of BSUS reassuring, reactive NST, no cervical dilation or effacement on exam strict FM/PPROM/PTL precautions reviewed f/u in office as scheduled OB Disposition: home
--- OUTSIDE RECORDS SUMMARY | 2025-07-26 13:21 | XMS_ITS | Clinical Summary ---
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 Name Role Phone Vidya Rai DO Primary Care Provider [phone] Social History Tobacco Use Types Packs/Day Years Used Date Smoking Tobacco: Never Assessed Comments Unknown Sex and Gender Information Value Date Recorded Sex Assigned at Not on file Legal Sex Female 12:14 PM PST Gender Identity Not on file Sexual Orientation Not on file Plan of Treatment Upcoming Encounters Date Type Department Care Team (Late st Contact Info) Description 11/08/2025 3:00 PM PDT Office Visit [facility] [place] [facility] [address] [id number] Leander Young MD [address] [place] [id number] Insurance Care Teams Packing House Laborer Relationship Specialty Start Date End Date Vidya Rai DO [phone] [place] [address] [address] [place] [address] PCP - General Family Medicine 06/20/25
== END 2025-07-26 12:34 | disposition home or self-care (01) ==
LOC: LABOR 12:22 → OB 13:20
PROVIDERS: PCP Family Medicine; Referring Provider Obstetrics & Gynecology; Visit Provider Obstetrics & Gynecology
DX: O47.03 False labor before 37 completed weeks of gestation, third trimester (principal); Z71.1 Person with feared health complaint in whom no diagnosis is made; Z3A.33 33 weeks gestation of pregnancy
CPT/HCPCS: 59025; 76815; G0378; G0379

== ENCOUNTER → 2025-07-28 09:55 | Outpatient (CLI) | payer OTHER, SELFPAY ==
[2025-07-28 10:30] LABS: Add Manual Diff / Slide Review NO; Hematocrit 32.1 % (36-46); Hemoglobin 11.1 g/dL (12.0-16.0); Lymphocytes Absolute Auto 1500 /uL (1100-4500); Mean Corpuscular HGB Conc 34.4 % (30-36); Mean Corpuscular Hemoglobin 31.1 PG (26-34); Mean Corpuscular Volume 90.2 fL (80-100); Platelet Count 210 X10^3/uL (150-400)
== END ==
PROVIDERS: PCP Family Medicine; Referring Provider Obstetrics & Gynecology; Visit Provider Obstetrics & Gynecology
DX: O99.019 Anemia complicating pregnancy, unspecified trimester (principal)
CPT/HCPCS: 36415; 85025